=== PATIENT | female | born 1945 | race Caucasian/White ===

== ENCOUNTER → 2021-04-30 | Day surgery (SDC) | payer MEDICARE, OTHER ==
[~2021-04-30] MED LIST: Ketamine 200 MG/20 ML MDV ONE; Lactated Ringers 1,000 ML IV SCH; Propofol 200 MG/20 ML SDV ONE; fentaNYL 100 MCG/2 ML SDV ONE
--- NOTE | 2021-04-30 10:27 | OR ---
DATE OF OPERATION: 04/30/2021 PREOPERATIVE DIAGNOSIS: POSITIVE COLOGUARD RECTAL TEST. POSTOPERATIVE DIAGNOSIS: POSITIVE COLOGUARD RECTAL TEST. SURGEON: Jony Stewart MD PROCEDURE: TOTAL COLONOSCOPY. ANESTHESIA: MAC. SPECIMEN: None. FINDINGS: Extensive sigmoid diverticulosis and external hemorrhoids, otherwise normal. No polyps, growths, bleeding sites, or cancers would explain the positive test. RECOMMENDATIONS: This patient is 75 years old. She has had multiple surgeries. I would tend to consider this as her last colonoscopy and repeat one for symptoms only. INDICATIONS: This 75-year-old female has a positive Cologuard test. DESCRIPTION OF PROCEDURE: After adequate preparation, a colonoscope was inserted into the rectum. This was somewhat difficult to get through the sigmoid colon secondary to extensive diverticulosis. Some of the diverticula had giant openings and it was almost difficult to tell which was the lumen of the colon and which was the lumen of the diverticula. I was able to work my way through the sigmoid and after that into the left colon. There were no remaining diverticula throughout the colon. The scope was advanced all the way to the cecum without difficulty. I could see the ileocecal valve and effluent coming through the valve into the cecum. I was able to advance the scope into the cecum itself. The bowel prep was very good on withdrawal of the scope. No other abnormalities were noted. She has no evidence of cancer, bleeding sites, or polyps. Rectal and anal examination are also normal except for her external hemorrhoids. Air was suctioned from the colon and the scope removed. CHAPARRO/MOOKIE /[id number]
== END ==
LOC: CC.SDS 07:18
PROVIDERS: ATTEND Surgery
DX: K57.30 Diverticulosis of large intestine without perforation or abscess without bleeding (principal); K64.4 Residual hemorrhoidal skin tags; K21.9 Gastro-esophageal reflux disease without esophagitis; M81.0 Age-related osteoporosis without current pathological fracture; Z79.899 Other long term (current) drug therapy; Z98.890 Other specified postprocedural states; Z87.891 Personal history of nicotine dependence
CPT/HCPCS: 45378; J2704; J3010; J7120